=== PATIENT | female | born 1990 | race African-American/Black ===

== ENCOUNTER 2016-12-17 17:06 | Emergency (ER) | payer OTHER ==
[2016-12-17 17:09] VITALS: BP 134/70; PULSE 62; TEMP 98.3; BMI 26.5
--- NOTE | 2016-12-17 17:55 | PDOC ---
History of Present Illness - General Chief Complaint: Eye Problem Stated Complaint: EYE PROBLEM Time Seen by Provider: 12/17/16 17:39 History Source: Patient Exam Limitations: No Limitations - History of Present Illness Initial Comments: CHIEF COMPLAINT: 26 y/o afebrile female c/o red, itchy left eye for the past few days. HISTORY OF PRESENT ILLNESS: The patient states today she woke up and her left eye was stuck shut with yellow crusting. She denies all other symptoms. Vital signs on arrival are within normal limits. REVIEW OF SYSTEMS: GENERAL/CONSTITUTIONAL: No fever/chills. No weakness. No weight change. HEAD, EYES, EARS, NOSE AND THROAT: +itchy red left eye with crusting MUSCULOSKELETAL: No joint or muscle swelling or pain. No neck or back pain. SKIN: No rash or easy bruising. NEUROLOGIC: No headache, vertigo, loss of consciousness, or loss of sensation. PHYSICAL EXAM: GENERAL: The patient is awake, alert, and fully oriented, in no acute distress. HEAD: Normal with no signs of trauma. ENT: Left conjunctiva injected. No discharge noted. NEUROLOGICAL: Normal speech, normal gait. CN II-XII grossly intact. SKIN: Warm, dry, normal turgor, no rashes or lesions noted. Past History - Past Medical History Allergies/Adverse Reactions: Allergies Allergy/AdvReac Type Severity Reaction Status Date / Time No Known Allergies Allergy Verified 12/17/16 17:09 Home Medications: Ambulatory Orders Erythromycin 0.5% Eye Ointment [Erythromycin 0.5% Eye Ointment -] 1 applic OS TID #1 tube 12/17/16 Other medical history: NONE - Psycho/Social/Smoking Cessation Hx Anxiety: No Suicidal Ideation: No Smoking History: Never smoked Hx Alcohol Use: No Drug/Substance Use Hx: No Substance Use Type: None *Physical Exam - Vital Signs Last Vital Signs Temp Pulse Resp BP Pulse Ox 98.3 F 62 20 134/70 100 12/17/16 17:07 12/17/16 17:07 12/17/16 17:07 12/17/16 17:07 12/17/16 17:07 Medical Decision Making - Medical Decision Making A/P: 26 y/o afebrile female with left conjunctivitis. Will discharge to home with rx for erythromycin ointment. Suggested she wash her hands well after touching her eye and return to the ER with any worsening or concerning symptoms. The patient verbalizes understanding of all instructions, has no further questions and is awaiting discharge. *DC/Admit/Observation/Transfer Diagnosis at time of Disposition: Acute bacterial conjunctivitis of left eye - Discharge Dispostion Disposition: HOME Condition at time of disposition: Good - Patient Instructions Printed Discharge Instructions: DI for Conjunctivitis Additional Instructions: Discharge Instructions: -A prescription for eye drops has been sent to your pharmacy; use as prescribed -Wash your hands thoroughly after you touch your eyes -Return to the ER with any worsening or concerning symptoms
== END 2016-12-17 18:34 | disposition home or self-care (01) ==
LOC: JERFT 17:06
DX: H10.32 Unspecified acute conjunctivitis, left eye (principal); B96.89 Other specified bacterial agents as the cause of diseases classified elsewhere
CPT/HCPCS: 99281-25

== ENCOUNTER 2022-01-08 04:13 | Day surgery (SDC) | payer OTHER ==
[2022-01-06 11:07] VITALS: BMI 28.7
[2022-01-08] MEDS ORDERED: LIDOCAINE HCL 1%, 10 MG/ML (20ML VIAL) ONE (07:43)
[2022-01-08] MEDS ORDERED: BUPIVACAINE HCL/PF 0.5% (5MG/ML) 10 ML VIAL ONE (07:47)
[2022-01-08] MEDS ORDERED: MIDAZOLAM HCL 2 MG/2 ML SINGLE DOSE VIAL ONE ×2 (08:27)
[2022-01-08] MEDS ORDERED: PROPOFOL 20 ML ONE (08:27)
[2022-01-08] MEDS ORDERED: BUPIVACAINE HCL/PF 0.5% (5MG/ML) 10 ML VIAL IJ ONE (08:34)
[2022-01-08] MEDS ORDERED: LIDOCAINE HCL 1%, 10 MG/ML (20ML VIAL) NR ONE (08:34)
[2022-01-08 11:35] VITALS: BP 108/56; PULSE 63; TEMP 97.3
== END 2022-01-08 12:33 | disposition home or self-care (01) ==
LOC: JASU-SURG 04:13
PROVIDERS: ATTEND Podiatrist Foot & Ankle Surgery
PROC: 0SRM0JZ Replacement of Right Metatarsal-Phalangeal Joint with Synthetic Substitute, Open Approach (ICD-10-PCS; principal; 2022-01-08 08:00)
DX: M20.21 Hallux rigidus, right foot (principal)
CPT/HCPCS: 73630-TC-RT-FY; 81025; 88304-TC; 88311-TC

== ENCOUNTER 2024-03-17 23:05 | Emergency (ER) | payer OTHER ==
[2024-03-17 23:21] VITALS: BP 116/74; PULSE 80; RESP 16; TEMP 98.4; BMI 31.1
== END 2024-03-18 03:19 | disposition home or self-care (01) ==
LOC: JER 23:05
DX: R60.0 Localized edema (principal)
CPT/HCPCS: 93970-TC; 99284-25

== ENCOUNTER 2025-03-05 14:35 | Emergency (ER) | payer OTHER ==
[2025-03-05 14:49] VITALS: BP 120/56; PULSE 72; RESP 18; TEMP 98.4; BMI 30.8
[2025-03-05 15:31] LABS: ABSOLUTE IMMATURE GRANULOCYTES 0.01 x10^3/uL (0.0-0.031); BASOPHILS # 0.06 x10^3/uL (0.01-0.08); EOSINOPHIL % 2.8 % (0.7-5.8); EOSINOPHILS # 0.17 x10^3/uL (0.04-0.36); MCHC 31.5 g/dl (32.2-35.5); MEAN CELL VOLUME 83.0 fl (79.4-94.8); MEAN PLT VOLUME 9.8 fl (9.4-12.3); MONOCYTE # 0.49 x10^3/uL (0.24-0.86); MONOCYTE % 8.2 % (4.7-12.5); RDW 13.5 % (12.1-16.8)
== END 2025-03-05 16:24 | disposition home or self-care (01) ==
LOC: JER 14:35
DX: O03.9 Complete or unspecified spontaneous abortion without complication (principal)
CPT/HCPCS: 36415; 84702; 85025; 99283-25